=== PATIENT | male | born 1945 | race Caucasian/White ===

== ENCOUNTER 2016-11-25 08:20 | Inpatient (IN) | payer OTHER ==
[2016-11-18 09:23] VITALS: BMI 31.0
--- NOTE | 2016-11-18 10:26 | PAT Medication Instructions ---
Service Date Nov 18, 2016. Current Home Medication List Acetaminophen (Tylenol Arthritis Ext Rel), 650 MG PO Q8H PRN for Pain Aspirin (Aspirin Ec), 81 MG PO QAM Buspirone Hcl (Buspar), 5 MG PO Q2D Glipizide (Glipizide Er), 1 TAB PO BID Lisinopril (Lisinopril), 1 TAB PO QAM Lorazepam (Ativan), 0.5 MG PO TID PRN for PRN Metformin Hcl (Glucophage), 1,000 MG PO BID Omeprazole (Prilosec), 20 MG PO QAM Simvastatin (Zocor), 20 MG PO HS Tamsulosin Hcl (Flomax), 0.4 MG PO QAM Tramadol (Ultram), 50 MG PO Q6 PRN for Pain Venlafaxine Hcl (Venlafaxine Hcl Er), 1 TAB PO QAM Medication Instructions For Your Scheduled Surgery - Hold the following medications per surgeon's instructions: Tramadol (Ultram), 50 MG PO Q6 PRN for Pain - Hold the following medications 48 hours prior to surgery: Metformin Hcl (Glucophage), 1,000 MG PO BID - Hold the following medications the morning of surgery: Lisinopril (Lisinopril), 1 TAB PO QAM Glipizide (Glipizide Er), 1 TAB PO BID - Take the following medications the morning of surgery with a sip of water: Aspirin (Aspirin Ec), 81 MG PO QAM Acetaminophen (Tylenol Arthritis Ext Rel), 650 MG PO Q8H PRN for Pain (if needed up to 4 hours before surgery) Omeprazole (Prilosec), 20 MG PO QAM Tamsulosin Hcl (Flomax), 0.4 MG PO QAM Lorazepam (Ativan), 0.5 MG PO TID PRN for PRN Buspirone Hcl (Buspar), 5 MG PO Q2D Venlafaxine Hcl (Venlafaxine Hcl Er), 1 TAB PO QAM - Take the following medications as scheduled the night before surgery: Simvastatin (Zocor), 20 MG PO HS Lorazepam (Ativan), 0.5 MG PO TID PRN for PRN Acetaminophen (Tylenol Arthritis Ext Rel), 650 MG PO Q8H PRN for Pain (if needed ) If you have any questions please call us at [phone] or [phone] or [phone]
[2016-11-18 10:36] LABS: BASO % 1.2 %; BASO ABS # 0.11 K/uL (0-0.2); COMPLETE YES; EOS % 1.8 %; HEMATOCRIT 32.4 % (42-52); IG% 0.4 %; LYMPH % 20.4 %; LYMPH ABS # 1.94 K/uL (1.2-3.4); MEAN CELL VOLUME 79.6 fL (80-100); MEAN CORPUSCULAR HGB CONC 32.7 g/dl (32-36); MEAN PLATELET VOLUME 9.7 fL (7.4-10.4); NEUT % 68.2 %; PLATELET COUNT 322 K/uL (130-400); RED BLOOD COUNT 4.07 M/uL (4.7-6.1); WHITE BLOOD COUNT 9.51 K/uL (4.8-10.8)
[2016-11-18 10:47] LABS: INR 0.9 (0.9-1.1); PROTHROMBIN TIME (PATIENT) 9.9 SECONDS (9.0-12.0)
--- NOTE | 2016-11-18 11:03 | DIAGNOSTIC IMAGING REPORT ---
CHEST PREADMISSION(PA/LAT) CLINICAL HISTORY: PAT preoperative evaluation COMPARISON STUDY: No previous studies for comparison. FINDINGS: The bones soft tissues and hemidiaphragms are normal. The cardiomediastinal silhouette is normal. The lungs are clear. The pulmonary vasculature is normal. IMPRESSION: Negative chest. The above report was generated using voice recognition software. It may contain grammatical, syntax or spelling errors. Electronically signed by: Say Jacob M.D. 11/18/2016 11:02 AM Dictated Date/Time: 11/18/2016 11:01 AM
[2016-11-18 11:21] LABS: ESTIMATED AVERAGE GLUCOSE 197 mg/dl; HA1C FLAG Normal (Normal)
[2016-11-18 11:59] LABS: BUN/CREATININE RATIO 17.3 (10-20); CALCIUM 9.5 mg/dl (8.5-10.1)
--- NOTE | 2016-11-19 22:47 | HISTORY & PHYSICAL EXAMINATION ---
DATE OF ADMISSION: 11/25/2016 CHIEF COMPLAINT: Persistent right knee pain after knee arthroscopy. HISTORY OF PRESENT ILLNESS: This is a 71-year-old gentleman, patient of my partner Dr. Henley, who presents for treatment of his right knee. He has got a long history of bilateral knee pain and discomfort, right side greater than left. He did have his right knee scoped by Dr. Henley back in January 2016. Really it did not help him much. He continues to have persistent pain and discomfort in the medial side of his knee. He gets a very temporary response to injection. X-rays show progressive medial compartment arthritis. Symptoms are localized to the medial side of his knee. He would like to proceed with some type of arthroplasty. Of note, patient does have a long history of medical issues including chronic back pain. PAST MEDICAL HISTORY: 1. Hypertension. 2. Elevated cholesterol. 3. Diabetes. 4. Arthritis. 5. Gastroesophageal reflux disease. 6. Obesity with a BMI of 31. 7. Low back pain. 8. BPH. PAST SURGICAL HISTORY: Right knee arthroscopy done on 02/05/2016. ALLERGIES: None. CURRENT MEDICINES: 1. Glipizide 5 mg 30 minutes before breakfast and supper. 2. Omeprazole 20 mg. 3. Simvastatin 20 mg at bedtime. 4. Lisinopril 2.5 mg once a day. 5. Ativan 0.5 mg 3 times a day. 6. Effexor 150 mg once a day. 7. Metformin 1000 mg twice a day. 8. Aspirin 81 mg a day. 9. BuSpar 5 mg a day. 10. Tramadol p.r.n. for pain. 11. Tamsulosin 0.4 mg once a day. SOCIAL HISTORY: A 71-year-old male. He is from [facility]. His medical doctor is Dr. Maddox. FAMILY HISTORY: Noncontributory. REVIEW OF SYSTEMS: Significant for diabetes. Denies any chest pain or shortness of breath. No history of DVT or PE. No known blood clotting disorders. No known bleeding problems. PHYSICAL EXAMINATION: GENERAL: Reveals a pleasant elderly male. He looks to be in reasonably good health. HEENT: Benign. NECK: Supple. No lymphadenopathy. LUNGS: Clear to auscultation. HEART: Regular rate and rhythm. ABDOMEN: Soft, nontender, nondistended. EXTREMITIES: Grossly neurovascularly intact except as follows: Examination of the legs reveals patient walks with a varus alignment to his knee. He is tender over the medial joint line. [id number] size knee effusion. Range of motion 0-125. No instability. X-RAYS: X-rays of the right knee reviewed. It shows advanced medial compartment DJD. He has got complete loss of his medial joint space. Looks like he has got an OCD lesion or avascular process going on the medial femoral condyle. Lateral compartment is well maintained. Some mild patellofemoral disease. ASSESSMENT: A 71-year-old male now 9 months out from knee arthroscopy with persistent progressive knee pain, unresponsive to conservative treatment. He would like definitive treatment. He does have multiple medical issues. His symptoms are localized to the medial side of his knee. PLAN: We are going to take him to the operating room and do a right partial knee replacement. If we get in there and it is too bad, we will do full knee replacement. The risks and benefits of partial and total knee replacement were explained to patient including but not limited to DVT, PE, , infection, neurological injury, vascular injury, bleeding problem, pain, limited range of motion, stiffness, failure to relieve symptoms, incomplete relief of symptoms, need for further surgery in the future, fracture, leg length inequality, nerve palsy, dislocation, need for revision surgery, etc. The patient understands and desires to proceed. Informed consent was obtained. As far as discharge plans, he is planning to be discharged to home, using [facility] home health program. We did talk to him about holding his metformin 2 days preoperatively and his lisinopril the morning of surgery.
[2016-11-25] VITALS (7 sets, daily range): BP systolic 127–156; BP diastolic 68–81; PULSE 69–83; TEMP 36.5–36.7; O2SAT 95–100; Ht 172.7 cm; Wt 91.9 kg
[~2016-11-25] VITALS: Ht 172.7 cm; Wt 91.9 kg
[2016-11-25] MEDS: TRANEXAMIC ACID INJ 1,000 MG in SODIUM CHLORIDE 0.9% 100ML 100 ML IV SCH ×2 (06:30→10:49)
[~2016-11-25 08:20] MED LIST: ACET1TAB84 PO; ACETAMINOPHEN 500 MG TAB PO SCH; ASPI81TA28 PO; BUPIVACAINE 0.5 % 5 MG/1 ML PF 10ML VIAL ONE; BUPIVACAINE LIPOSOME 266 MG, BUPIVACAINE/EPINEPHRINE INJ 50 ML, SODIUM CHLORIDE 0.9% PF... INFIL SCH; BUSP15TA70 PO; CEFAZOLIN 2000 MG/60 ML D5W 60 ML IV SCH; FAMOTIDINE 20 MG TAB PO SCH; GABAPENTIN 300 MG CAP PO SCH; GLIP-197 PO; LACTATED RINGER'S 1000ML 500 ML IV ONE; LACTATED RINGER'S 1000ML IV SCH; LORA-741 PO; LSN25 PO; METF-384 PO; METOCLOPRAMIDE HCL 10 MG TAB PO SCH; PRLSR20 PO; SCOPOLAMINE 1.5 MG TDSY TD SCH; SIMV20TA2 PO; TAMS0.4C38 PO; TRAM-10 PO; VENL150T33 PO
[2016-11-25] MEDS ORDERED: FENTANYL CITRATE INJ 50 MCG/1 ML 2 ML VIAL ONE (09:18)
[2016-11-25] MEDS ORDERED: PROPOFOL IV EMULSION 10 MG/ML 20 ML VIAL IV ONE ×2 (09:18→11:25)
[2016-11-25] MEDS ORDERED: MIDAZOLAM HCL 1 MG/ML 2ML VIAL ONE ×2 (09:18→10:52)
[2016-11-25] MEDS ORDERED: BACITRACIN 50000 UNIT VIAL ONE (09:25)
[2016-11-25] MEDS ORDERED: SODIUM CHLORIDE 0.9% PF 50 ML VIAL ONE (09:25)
[2016-11-25] MEDS ORDERED: BUPIVACAINE LIPOSOME 1/3% 266 MG/20 ML VIAL INFIL ONE (09:25)
[2016-11-25] MEDS ORDERED: BUPIVACAINE/EPINEPHRINE 0.25% 1:200,000 30 ML VIAL ONE (09:25)
[2016-11-25] MEDS ORDERED: FENTANYL CITRATE INJ 50 MCG/1 ML 2 ML VIAL IV PRN (09:30)
[2016-11-25] MEDS ORDERED: EpHEDrine SULFATE INJ 50 MG/ML AMP IV PRN (09:30)
[2016-11-25] MEDS ORDERED: ONDANSETRON INJ 2 MG/ML 2 ML VIAL IV PRN ×2 (09:30→13:00)
[2016-11-25] MEDS ORDERED: ATROPINE SULFATE 0.1 MG/ML 5ML SYR IV PRN (09:30)
--- NOTE | 2016-11-25 10:44 | History & Physical Bridge Note ---
H&P Re-Evaluation Bridge Note: I have examined the patient, reviewed the History & Physical and in the interval since the performance of the History & Physical I have noted the following changes of clinical significance: No changes noted
--- NOTE | 2016-11-25 12:57 | [facility] Post Operative Brief Note ---
Immediate Operative Summary Operative Date Nov 25, 2016. Pre-Operative Diagnosis Right Knee Degenerative Joint Disease Post-Operative Diagnosis Same as preop Procedure(s) Performed Right Knee Arthroplasty Uni Compartment Surgeon Dr. Mota Rope Rider Surgeon(s) Eben Navarro PA-C Estimated Blood Loss 25 ml Findings Right Knee DJD Fluids (cc crystalloids) 1200 cc Specimens A. Right Knee Bone and Tissue Drains None Anesthesia Spinal Complication(s) None Disposition Recovery Room / PACU
[2016-11-25] MEDS ORDERED: TAMSULOSIN HCL 0.4 MG CAP PO PRN (13:00)
[2016-11-25] MEDS ORDERED: METOCLOPRAMIDE HCL INJ 5 MG/ML 2 ML VIAL IV PRN (13:00)
[2016-11-25] MEDS ORDERED: MAGNESIUM HYDROXIDE SUSP 30 ML UDC PO PRN (13:00)
[2016-11-25] MEDS ORDERED: HYDROmorphone INJ 0.5 MG/0.5 ML SYR IV PRN (13:00)
[2016-11-25] MEDS ORDERED: TRAMADOL HCL 50 MG TAB PO PRN (13:00)
[2016-11-25] MEDS ORDERED: LORAZEPAM 0.5 MG TAB PO PRN (13:00)
[2016-11-25] MEDS ORDERED: ALUMINUM/MAGNESIUM/SIMETH (MAALOX MAX) 30 ML UDC PO PRN (13:00)
[2016-11-25] MEDS ORDERED: ZOLPIDEM TARTRATE 5 MG TAB PO PRN (13:00)
[2016-11-25] MEDS ORDERED: BISACODYL 10 MG SUPP PR PRN (13:00)
[2016-11-25] MEDS ORDERED: SILVER SULFADIAZINE 1% CR 50 GM JAR EXT PRN (13:00)
[2016-11-25] MEDS ORDERED: GLUCOSE 10 TABS/TUBE PO PRN (13:15)
[2016-11-25] MEDS ORDERED: GLUCOSE 40% GEL 15 GM TUBE PO PRN (13:15)
[2016-11-25] MEDS ORDERED: DEXTROSE 50% 50 ML SYR IV PRN (13:15)
[2016-11-25] MEDS ORDERED: GLUCAGON FOR INJ 1 MG VIAL SQ PRN (13:15)
--- NOTE | 2016-11-25 13:35 | DIAGNOSTIC IMAGING REPORT ---
RIGHT KNEE 2 VIEWS History: Right knee hemiarthroplasty. Degenerative arthritis. Postop. FINDINGS: The patient is status post a right knee medial hemiarthroplasty. The hardware is intact. No fracture or dislocation. Skin sangeetha are in place. IMPRESSION: Right knee medial hemiarthroplasty. No evidence for hardware complication. Electronically signed by: Alexsander Patel M.D. 11/25/2016 1:34 PM Dictated Date/Time: 11/25/2016 1:30 PM
--- NOTE | 2016-11-25 13:43 | Anesthesiology Progress Note ---
Anesthesia Post Op Note Date & Time Nov 25, 2016 at 13:43 Vital Signs Pain Intensity: 0 Vital Signs Past 12 Hours Date Time Temp Pulse Resp B/P (MAP) Pulse Ox O2 Delivery O2 Flow Rate FiO2 11/25/16 13:40 36.8 76 18 112/68 96 Nasal Cannula 3 11/25/16 13:30 74 18 115/70 96 Nasal Cannula 3 11/25/16 13:20 79 18 119/79 99 Nasal Cannula 3 11/25/16 13:10 82 18 129/61 100 Nasal Cannula 3 11/25/16 13:04 36.3 79 18 92/73 95 Nasal Cannula 3 11/25/16 08:55 36.7 79 20 137/70 98 Room Air Notes Mental Status: alert / awake / arousable, participated in evaluation Pt Amnestic to Procedure: Yes Nausea / Vomiting: adequately controlled Pain: adequately controlled Airway Patency, RR, SpO2: stable & adequate BP & HR: stable & adequate Hydration State: stable & adequate Neuraxial Anesthesia: was administered, sensory block is resolving Anesthetic Complications: no major complications apparent
[2016-11-25] MEDS: SODIUM CHLORIDE 0.9% 1000ML 1,000 ML IV SCH ×2 (15:02→21:36)
--- NOTE | 2016-11-25 15:40 | PROGRESS NOTE ---
DATE: 11/25/2016 SUBJECTIVE: A 71-year-old gentleman postop from a right partial knee replacement. He is doing well. Not having any pain yet. No chest pain or shortness of breath. Not feeling dizzy or lightheaded. OBJECTIVE: VITAL SIGNS: Temperature is 36.5. Vital signs stable. GENERAL: Physical examination reveals a pleasant elderly male. He is sitting up in bed and eating his lunch. LUNGS: Clear to auscultation. HEART: Regular rate and rhythm. ABDOMEN: Soft, nontender, and nondistended. EXTREMITIES: Grossly neurovascularly intact except as follows. Examination of the right lower extremity reveals the leg to be well aligned. Dressing is clean, dry, and intact. He can dorsiflex and plantarflex his foot appropriately. He is neurologically intact. X-RAYS: X-rays of the right knee from recovery room were reviewed. It shows a right partial knee replacement. Significantly rotated films. Fairly poor quality. No signs of fracture or problems. ASSESSMENT: A 71-year-old gentleman postop from a right partial knee replacement, doing well. Pain is controlled. He is neurologically intact. PLAN: 1. DVT prophylaxis including thigh high TEDs, SCDs, and aspirin twice a day. 2. PT/OT. Weightbear as tolerated. Right total knee protocol. 3. Pain control, doing well with current pain regimen. We will try and limit narcotics to avoid confusion issues. 4. IV antibiotics x24 hours. 5. Disposition: He is hoping to be discharged to home with some home health once adequately recovered.
[2016-11-25] MEDS ORDERED: PHARMACY GLYCEMIC MGMT CONSULT PRN (15:45)
[2016-11-25] MEDS: ACETAMINOPHEN 500 MG TAB PO SCH ×2 (15:45→20:57)
[2016-11-25] MEDS ORDERED: INSULIN HUMAN REGULAR SC SCH (16:00)
[2016-11-25] MEDS: KETOROLAC TROMETHAMINE 30 MG/ML VIAL IV. SCH ×2 (16:02→18:01)
[2016-11-25] MEDS: CHECK SCOPOLAMINE PATCH PLACEMENT SCH (16:05)
[2016-11-25] MEDS ORDERED: INSULIN GLARGINE SOLOSTAR 100 UNITS/ML 3 ML PEN SC ONE ×2 (16:15→21:00)
[2016-11-25] MEDS: CEFAZOLIN IV 2,000 MG in DEXTROSE 5% 50ML 50 ML IV SCH (17:02)
[2016-11-25] MEDS ORDERED: INSULIN ASPART 100 UNITS/ML 3 ML PEN SC SCH (17:15)
[2016-11-25] MEDS: FERROUS GLUCONATE 324 MG TAB PO SCH (18:12)
[2016-11-25] MEDS: TRAMADOL HCL 50 MG TAB PO PRN (18:12)
[2016-11-25] MEDS: INSULIN ASPART 100 UNITS/ML 3 ML PEN SC SCH ×2 (18:13→20:58)
[2016-11-25] MEDS ORDERED: TRANEXAMIC ACID INJ 1,000 MG in SODIUM CHLORIDE 0.9% 100ML 100 ML IV SCH (19:00)
[2016-11-25] MEDS: ASPIRIN 325 MG ECTAB PO SCH (20:57)
[2016-11-25] MEDS: DOCUSATE SODIUM 100 MG CAP PO SCH (20:57)
[2016-11-25] MEDS ORDERED: SIMVASTATIN 20 MG TAB PO SCH (21:00)
[2016-11-25] MEDS ORDERED: NON-FORMULARY MEDICATION (Glipizide (Glipizide Er) 1 TAB) PO SCH (21:00)
[2016-11-25] MEDS ORDERED: SENNA 8.6 MG TAB PO SCH (21:00)
[2016-11-26] MEDS ORDERED: INSULIN ASPART 100 UNITS/ML 3 ML PEN SC SCH
[2016-11-26] MEDS: CHECK SCOPOLAMINE PATCH PLACEMENT SCH ×2 (00:16→07:40)
--- NOTE | 2016-11-26 00:43 | OPERATIVE REPORT ---
DATE OF OPERATION: 11/25/2016 SURGEON: Dr. Jose Mota. LABORATORY SECRETARY: LEISA Carmona. 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 POSTOPERATIVE DIAGNOSIS: Same. PROCEDURE PERFORMED: Right Biomet Sarah mobile-bearing partial knee replacement. COMPLICATIONS: None. ESTIMATED BLOOD LOSS: 25 mL. FLUID REPLACEMENT: 1200 mL crystalloid fluid replacement. ANESTHESIA: Spinal with adductor canal block. DRAINS: None. SPECIMENS: Right knee sent for pathology. OPERATIVE INDICATIONS: The patient is a 71-year-old male with multiple underlying medical comorbidities including diabetes, back pain and chronic anemia. He has a long history of right knee pain and discomfort. He underwent a knee arthroscopy back in January with minimal relief. 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 The patient elected to proceed with partial knee replacement. His symptoms are primarily localized to the medial side of his knee. Considering his medical situation, I really felt partial knee replacement was the best operation for this gentleman. OPERATIVE FINDINGS: Operative findings revealed advanced right knee DJD with grade 4 bone on bone disease of the medial femoral condyle and medial tibial plateau. The rest of his knee joint was fairly well preserved. He did have a moderate sized knee effusion. There is no significant eburnation to the bone. OPERATIVE IMPLANTS: Operative implants consisted of: 1. Biomet Sarah size medium femoral component. 2. Biomet right medial size A tibial tray. 3. 3 mm mobile bearing insert. OPERATIVE PROCEDURE: The patient was taken to the operating room, identified and placed on the operating table in supine position. All contact areas were appropriately padded. IV antibiotics were provided by anesthesia team. A spinal anesthetic and adductor canal block had been provided in the holding area. Stark catheter was placed in sterile fashion. Right thigh tourniquet was then placed and the right lower extremity was then prepped and draped in the usual sterile fashion. The right leg was elevated and exsanguinated with Esmarch and tourniquet was placed at 300 mmHg. An anterior approach to the right knee was then performed through a longitudinal incision, beginning at the superior pole of the patella and extending just medial to the tibial tubercle. Sharp dissection was carried out through the subcutaneous tissues down to the level of the extensor mechanism. A medial parapatellar arthrotomy was then performed. Some slight subperiosteal dissection was carried out medially, taking great care to protect the MCL ligament. The fat pad was resected. I then examined the knee. The ACL and PCL were intact. The lateral compartment was fairly well preserved. Fairly mild changes in the patellofemoral compartment. He did have grade 4 changes in the medial compartment. I elected to proceed with partial knee replacement. Some osteophytes were removed from the intercondylar notch area. The femur was sized to a size medium. The external tibial alignment jig was then placed in the anterior face of the tibia and adjusted to the spoon with the 4 G clamp. Proximal tibial cut was made. Intramedullary canal was then entered. The intramedullary guide was placed. The femoral template was connected to the IM bhakti and holes were drilled for the femoral component. The posterior cutting guide was placed and the posterior cut was made. The 0 spigot was placed and the distal femur was milled. I then trialed the knee. The 3 feeler gauge fit most appropriately in flexion and I could not even get the 1 feeler gauge in extension. Therefore, we milled with the 3 spigot. This provided equal flexion and extension gaps which both fit the size 3 feeler gauge appropriately. We elected to use these components. Trial components were removed. A cement drill was used to create some holes in the distal femur for cementation. The posterior osteophyte cutting guide was placed and the distal femur was milled to accommodate the anterior flange of the femoral component and the osteophyte was removed posteriorly. I did remove the medial meniscus as well. The tibial tray was then pinned into position and the toothbrush saw blade was used to create the keel for the tibial tray. I then irrigated the knee extensively. I then trialed the knee and the 3 implant fit most appropriately. We elected to use these implants. All trial implants were removed. I did inject locally with 100 mL of combination of 20 mL of Exparel, 30 mL of normal saline, 50 mL of 0.25% Marcaine with epinephrine. A single batch of Palacos G cement was mixed. A right medial size A tibial tray was then cemented in place, followed by a medium femoral component and I then pressurized with the 4 feeler gauge. The knee was brought out into about 30 degrees short of full extension. All extraneous cement was removed. Once the cement hardened, a final cement check was then performed. I then trialed the knee again and elected to use a 3 insert. A permanent 3 mm mobile bearing insert was placed. Everything tracked appropriately. Attention was then drawn toward closing. The wound was irrigated with copious amounts of normal saline. The tourniquet was then let down for a tourniquet time of 84 minutes. Hemostasis was assured with use of electrocautery. The extensor mechanism was then closed with #1 Vicryl suture in a [id number] fashion. Extensor mechanism was checked and found to be intact. The subcutaneous tissues were then closed with 2-0 Dexon suture in a buried interrupted fashion. Skin was closed with skin sangeetha. Leg was then cleaned and dried and a sterile dressing of Xeroform, 4 x 4s, sterile cast padding and Abram bandage were applied. The patient then transferred to the recovery room in stable condition. The patient tolerated the procedure well with no complications. All needle and sponge counts were correct at the end of the operation. I attest to the content of the Intraoperative Record and any orders documented therein. Any exceptions are noted below. ESTRELLAD
[2016-11-26] MEDS: CEFAZOLIN IV 2,000 MG in DEXTROSE 5% 50ML 50 ML IV SCH (01:33)
[2016-11-26] MEDS: KETOROLAC TROMETHAMINE 30 MG/ML VIAL IV. SCH ×3 (01:33→14:40)
[2016-11-26 03:48] VITALS: BP 135/72; PULSE 98; TEMP 36.6; O2SAT 63
[2016-11-26] MEDS: INSULIN ASPART 100 UNITS/ML 3 ML PEN SC SCH ×4 (03:49→12:00)
[2016-11-26] MEDS: ACETAMINOPHEN 500 MG TAB PO SCH ×2 (05:31→14:40)
[2016-11-26 06:16] LABS: HEMATOCRIT 29.2 % (42-52); MEAN CELL VOLUME 80.7 fL (80-100); MEAN CORPUSCULAR HEMOGLOBIN 25.1 pg (25-34); MEAN CORPUSCULAR HGB CONC 31.2 g/dl (32-36); MEAN PLATELET VOLUME 9.9 fL (7.4-10.4); PLATELET COUNT 266 K/uL (130-400); RED BLOOD COUNT 3.62 M/uL (4.7-6.1); WHITE BLOOD COUNT 8.93 K/uL (4.8-10.8)
[2016-11-26 07:06] LABS: BUN/CREATININE RATIO 12.9 (10-20); CALCIUM 8.4 mg/dl (8.5-10.1); CREATININE 1.2 mg/dl (0.60-1.40); POTASSIUM 4.1 mmol/L (3.5-5.1)
[2016-11-26 07:30] VITALS: BP 132/75; PULSE 61; TEMP 36.6; O2SAT 98
--- NOTE | 2016-11-26 07:40 | Anesthesiology Progress Note ---
Anesthesia Post Op Note Date & Time Nov 26, 2016 at 07:40 Vital Signs Pain Intensity: 8.0 Vital Signs Past 12 Hours Date Time Temp Pulse Resp B/P (MAP) Pulse Ox O2 Delivery O2 Flow Rate FiO2 11/26/16 03:48 36.6 98 16 135/72 (93) 63 Room Air 11/26/16 00:15 Room Air 11/25/16 23:10 36.6 69 18 141/70 (93) 98 Room Air Notes Mental Status: alert / awake / arousable, participated in evaluation Pt Amnestic to Procedure: Yes Nausea / Vomiting: adequately controlled Pain: improving with treatment Airway Patency, RR, SpO2: stable & adequate BP & HR: stable & adequate Hydration State: stable & adequate Anesthetic Complications: no major complications apparent
[2016-11-26] MEDS: SODIUM CHLORIDE 0.9% 1000ML 1,000 ML IV SCH (07:45)
[2016-11-26] MEDS ORDERED: INFLUENZA VACCINE HIGH DOSE 65+ 0.5 ML SYR IM. ONE (08:00)
[2016-11-26] MEDS ORDERED: INFLUENZA ADMINISTRATION CHARGE ONE (08:00)
[2016-11-26] MEDS: DOCUSATE SODIUM 100 MG CAP PO SCH (08:34)
[2016-11-26] MEDS: FERROUS GLUCONATE 324 MG TAB PO SCH ×2 (08:34→14:40)
[2016-11-26] MEDS: ASPIRIN 325 MG ECTAB PO SCH (08:35)
[2016-11-26] MEDS ORDERED: PANTOprazole SOD 40 MG TAB PO SCH (09:00)
[2016-11-26] MEDS ORDERED: TAMSULOSIN HCL 0.4 MG CAP PO SCH (09:00)
[2016-11-26] MEDS ORDERED: MULTIVITAMIN TAB PO SCH (09:00)
[2016-11-26] MEDS ORDERED: LISINOPRIL 2.5 MG TAB PO SCH (09:00)
[2016-11-26] MEDS ORDERED: NON-FORMULARY MEDICATION (Omeprazole (Prilosec) 20 MG) PO SCH (09:00)
[2016-11-26] MEDS ORDERED: INSULIN GLARGINE SOLOSTAR 100 UNITS/ML 3 ML PEN SC SCH (09:00)
[2016-11-26] MEDS ORDERED: VENLAFAXINE HCL XR 150 MG CAPXR PO SCH (09:00)
[2016-11-26] MEDS: TRAMADOL HCL 50 MG TAB PO PRN (10:15)
--- NOTE | 2016-11-26 11:20 | Pharmacy Progress Note ---
Glycemic Control Intl Consult Date of Service Nov 26, 2016. Scope Glycemic Pharmacist consulted by Dr Mota on 11/25/16 for glycemic control and to write orders per [facility], located within [facility] inpatient glycemic control protocol Objective Weight (Kilograms): 91.90 Accuchecks BSG (last 24hrs): Test 11/25/16 16:57 11/25/16 20:56 11/26/16 00:15 11/26/16 03:46 Bedside Glucose 269 mg/dl (70-99) 112 mg/dl (70-99) 132 mg/dl (70-99) 120 mg/dl (70-99) Test 11/26/16 05:42 11/26/16 07:45 Random Glucose 133 mg/dl (70-99) Bedside Glucose 164 mg/dl (70-99) Laboratory Data (last 24hrs) Test 11/26/16 05:42 Anion Gap 7.0 mmol/L BUN/Creatinine Ratio 12.9 Blood Urea Nitrogen 16 mg/dl Creatinine 1.20 mg/dl Potassium Level 4.1 mmol/L Sodium Level 141 mmol/L White Blood Count 8.93 K/uL HbA1c Test 11/18/16 10:04 Hemoglobin A1c 8.5 % (4.5-5.6) H Recent Pertinent Medications Outpatient Anti-diabetic Regimen: * Glipizide plus Metformin PO Risk Factors for Insulin Resistance: * Recent Surgery * Diet Assessment & Plan ASSESSMENT: * 71 yo T2DM M admitted s/p R knee surgery * Pt on orals as an outpatient, A1c 8.5% indicative of reasonable outpatient control - could be slightly better * Orals held on admission and pt initiated on wt based basal bolus regimen * No steroids given in or around surgery which makes picture less complicated * BSGs went from 269 immediately post op to 164 mg/dL this AM * Continue basal/bolus regimen and loosen if necessary over the next 24 hours PLAN FOR INPATIENT GLYCEMIC CONTROL: * Hold outpatient oral diabetes medications * Basal insulin with LANTUS 16 units SQ BID * Correctional Insulin with NOVOLOG per scale ACHS or Q6hrs while NPO * Goal Range: Low 110 mg/dL - High 140 mg/dL * Correction Factor: 25 mg/dL/unit * Nutritional / Prandial insulin per carb ratio of 1 unit per 8 grams CHO consumed * Please note that the plan above was derived based on current level of insulin resistance and hospital stress. These recommendations are appropriate for inpatient admission only. Plan of care upon discharge will need to be reassessed to avoid potential outpatient hypo/hyperglycemia. Thank you.
[2016-11-26] MEDS ORDERED: FRRG PO (11:58)
[2016-11-26] MEDS ORDERED: ULT50X PO (11:58)
[2016-11-26] MEDS ORDERED: ACET-24 PO (11:58)
[2016-11-26] MEDS ORDERED: NAPR1TAB9 PO (11:58)
[2016-11-26] MEDS ORDERED: ASPEC325 PO (11:58)
--- NOTE | 2016-11-26 12:01 | PROGRESS NOTE ---
DATE: 11/26/2016 SUBJECTIVE: A 71-year-old gentleman postop day #1 from a right partial knee replacement. He is doing pretty well. Therapy went well. Pain is controlled. Denies any chest pain or shortness of breath. Not feeling dizzy or lightheaded. OBJECTIVE: VITAL SIGNS: Temperature is 36.8. Vital signs stable. GENERAL: Physical examination reveals a pleasant elderly male. He is sitting up in bed and talking to his . He looks comfortable. EXTREMITIES: Examination of the right leg reveals the dressing to be clean, dry, and intact. He can do a straight leg raise. He is neurologically intact. LABORATORY DATA: Hemoglobin 9.1. Hematocrit 29.2. Electrolytes are stable. Blood glucose 164. ASSESSMENT: A 71-year-old male postop day #1 from a right partial knee replacement, doing pretty well. He feels like he is ready to go home. Therapy went well. He is anemic, but without symptoms. He has got some chronic underlying anemia. PLAN: 1. DVT prophylaxis including thigh-high TEDs, SCDs, and aspirin twice a day. 2. PT/OT. Weightbear as tolerated. Right total knee protocol. 3. Pain control, doing pretty well with current pain regimen. We will use Tylenol around the clock and tramadol in addition. 4. Anemia. Currently, asymptomatic. We will continue iron supplementation. 5. Disposition. He is planning to be discharged to home with some home health.
--- NOTE | 2016-11-26 12:01 | Discharge Instructions ---
Discharge Instructions Date of Service Nov 26, 2016. Admission Reason for Admission: Right Knee Degenerative Joint Disease Discharge Discharge Diagnosis / Problem: Right Partial Knee Replacement Discharge Goals Goal(s): Decrease discomfort, Improve function, Increase independence, Improve disease control, Therapeutic intervention Activity Recommendations Activity Limitations: per Instructions/Follow-up section Weightbearing Status: Right weightbearing . Instructions / Follow-Up Instructions / Follow-Up ACTIVITY RECOMMENDATIONS: Physical Therapy: * You will go to physical therapy three times each week for four to six weeks after your surgery in order to regain your knee range of motion and to retrain your knee to work properly. * It is just as important to make sure you are getting your knee perfectly straight as it is to regain your knee bend. * Taking a pain pill an hour before therapy can help you have a more productive and comfortable therapy session. Home Exercise: * You were shown a series of exercises (heel props, heel slides, etc.) in the hospital. Do these exercises three to four times each day including the exercises you were shown in physical therapy. Walking: * Get up and walk several times each day. For the first four weeks, try not to stand or walk for more than one hour at a time. If you do stand or walk for more than one hour, you will not hurt anything, but your knee and leg will likely swell. * As you feel comfortable, you may change from the walker or crutches to a cane and then to independent walking. MEDICATIONS: New Medicine: * You will likely be taking one or more of these medications: 1. Tramadol - A quick and shorter-acting pain medication. Take one to two tablets every four to six hours to lessen your pain. 2. Iron Sulfate - Take two times each day for the month after surgery to help you replace the blood lost during surgery. 3. Aspirin - Thins your blood to lessen the chance of forming a blood clot. * The most common side effects of pain medicine and iron are nausea and constipation. If nausea or constipation is too much of a problem or if you have any questions about your new medicines or doses, call [facility] at . We will try to help you manage these issues. VERY IMPORTANT TO READ AND REVIEW" Pain: * The immediate post-operative period after knee replacement surgery is often quite painful. * You are given a prescription for pain medicine. You should take it, as directed, when you need it, especially before physical therapy and before going to bed. Pain that interferes with sleep is very common and can last several months. * You will likely need pain medicine for the first four to six weeks. It will not stop all of the pain. The pain will lessen and as you feel better, you may change to milder pain medicine such as Tylenol. * The most common side effects of pain medicine are nausea and constipation, so don't take more than you need. SPECIAL CARE INSTRUCTIONS: TEDs/Elastic Stockings: * The white elastic stockings help limit swelling and prevent blood clots from forming in your legs. The more you wear them, the more they work. * Wear them for six weeks after knee replacement surgery and four weeks after partial knee replacement. Prevention of Infection: * Take antibiotics one hour before any dental cleaning, dental work, urological procedure, gastrointestinal procedure or any invasive surgery in order to prevent your new joint from getting infected. * You may get the antibiotics from the doctor performing the procedure or you may call our office at before and we will call in a prescription to the pharmacy of your choice. Things to Watch For: * Drainage from the incision site that occurs more than one week after your surgery. * Severely increased knee/leg pain or swelling. * Increased redness at the incision site. * Fever above 102 degrees Fahrenheit. * Unusual chest pain or shortness of breath. * Unusual pain or burning with urination. Call [facility] at with any of the above problems or if you have any questions about your medicines or recovery. FOLLOW UP VISIT: Make an appointment to see your doctor for approximately two weeks after surgery for a progress check and staple removal by calling the office at . Current Hospital Diet Patient's current hospital diet: Diabetes Type 2 Diet Discharge Diet Recommended Diet: Diabetes Type 2 Diet Procedures Procedures Performed: Right Knee Arthroplasty Uni Compartment Pending Studies Studies pending at discharge: no Laboratory Results Hemoglobin A1c Test 11/18/16 10:04 Range/Units Estimated Average Glucose 197 mg/dl Hemoglobin A1c 8.5 H 4.5-5.6 % Medical Emergencies . Who to Call and When: Medical Emergencies: If at any time you feel your situation is an emergency, please call [phone] immediately. . Non-Emergent Contact Non-Emergency issues call your: Surgeon . "Provider Documentation" section prepared by Jose Mota. . VTE Core Measure Inpt VTE Proph given/why not?: Other Anticoagulation, T.E.D. Reuben, SCD's
[2016-11-26 12:07] VITALS: BP 132/75; PULSE 61; TEMP 36.6; O2SAT 98
--- NOTE | 2016-12-01 14:52 | DISCHARGE SUMMARY ---
ADMITTING PHYSICIAN AND SURGEON: Dr. Mota. 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 PROCEDURE PERFORMED: Right knee partial knee replacement. SECONDARY DIAGNOSES: Hypertension, elevated cholesterol, diabetes, arthritis, gastroesophageal reflux disease, obesity, low back pain, BPH. CONSULTS: None obtained. HISTORY AND PHYSICAL EXAMINATION: Well documented in patient's chart. HOSPITAL COURSE: The patient was admitted on 11/25/2016 and underwent partial knee replacement. He tolerated procedure well. There were no complications. He was transferred to the PACU postoperatively and later to the orthopedic floor for further care. He was given Ancef for antibiotic prophylaxis, SHILOH stockings, SCDs and aspirin for DVT prophylaxis. Hemoglobin, hematocrit and vital signs were monitored during his hospital stay and remained stable. He developed some postoperative anemia with a hemoglobin of 9.1 and did not require any blood transfusions. There were no complications. By postoperative day 1, he was tolerating a diabetic diet. Pain was controlled with oral pain medicine. He was participating in physical therapy and had no signs or symptoms of deep vein thrombosis. On postop day 1, he was discharged home and set up with home health services, given printed discharge instructions including new prescriptions for extra strength Tylenol, aspirin 325 mg b.i.d. an iron supplement, naproxen and tramadol. Continue his home medications with the exception of his home dose of Tylenol and aspirin which were changed. Continue physical therapy, weightbearing as tolerated. SHILOH stockings. Follow up in 10-12 days or sooner if there are any problems or concerns.
== END 2016-11-26 15:00 | disposition home health service (06) | DRG 470 ==
LOC: C.ACU 08:20 → C.3E 08:50 → ENRESERV 13:36
PROVIDERS: ADMIT Orthopaedic Surgery Sports Medicine; ATTEND Orthopaedic Surgery Sports Medicine
PROC: 0SRC0J9 Replacement of Right Knee Joint with Synthetic Substitute, Cemented, Open Approach (ICD-10-PCS; principal; 2016-11-25 11:00)
DX: M17.11 Unilateral primary osteoarthritis, right knee (principal); M90.551 Osteonecrosis in diseases classified elsewhere, right thigh; M25.461 Effusion, right knee; M54.42 Lumbago with sciatica, left side; I10 Essential (primary) hypertension; E11.9 Type 2 diabetes mellitus without complications; K21.9 Gastro-esophageal reflux disease without esophagitis; E78.00 Pure hypercholesterolemia, unspecified; D64.9 Anemia, unspecified; N40.0 Benign prostatic hyperplasia without lower urinary tract symptoms; F41.9 Anxiety disorder, unspecified; F32.9 Major depressive disorder, single episode, unspecified; E66.9 Obesity, unspecified; Z68.31 Body mass index [BMI] 31.0-31.9, adult; Z87.891 Personal history of nicotine dependence; Z79.82 Long term (current) use of aspirin; Z79.84 Long term (current) use of oral hypoglycemic drugs; Z79.891 Long term (current) use of opiate analgesic; Z79.899 Other long term (current) drug therapy